=== PATIENT | female | born 1995 | race Caucasian/White ===

== ENCOUNTER 2017-06-13 08:00 | Emergency (ER) | payer BC ==
[2017-06-13 08:38] VITALS: BP 106/62
--- NOTE | 2017-06-13 08:45 | UC ---
Eye Complaint HPI - HPI Summary HPI Summary: Nadia Merritt eye red with discharge yesterday. She has had a cold since tuesday which is sinus congestion/pressure. Stase sinus pressure is 5/10. Denies contact use or injury. no vision loss or photophobia. no fever or sore throat - History of Current Complaint Stated Complaint: EYE COMPLAINT Time Seen by Provider: 06/13/17 08:29 Hx Obtained From: Patient Hx Last Menstrual Period: 05/20/17 ?: No Onset/Duration: Gradual Onset Timing: Constant Pain Intensity: 5 Aggravating Factor(s): Nothing Alleviating Factor(s): Nothing Associated Signs And Symptoms: Negative: Photophobia, Vision Impairment Bilateral, Vision Impairment Right, Vision Impairment Left, Fever, Swelling - Risk Factors Penetrating Injury Risk Factor: Negative Globe Rupture Risk Factors: Negative Acute Glaucoma Risk Factors: Negative Optic Artery Occlusion Risk Factors: Negative - Allergies/Home Medications Allergies/Adverse Reactions: Allergies Allergy/AdvReac Type Severity Reaction Status Date / Time apple Allergy Hives Verified 06/13/17 08:29 gluten Allergy Diarrhea Verified 06/13/17 08:29 PMH/Surg Hx/FS Hx/Imm Hx Previously Healthy: Yes - Surgical History Surgical History: None - Family History Known Family History: Positive: None - Social History Occupation: Student Lives: Alone Alcohol Use: None Substance Use Type: None Smoking Status (MU): Never Smoked Tobacco - Immunization History Vaccination Up to Date: Yes Review of Systems Constitutional: Negative Skin: Negative Eyes: Drainage, Eye Redness ENT: Sinus Congestion Respiratory: Negative Cardiovascular: Negative Gastrointestinal: Negative Genitourinary: Negative Motor: Negative Neurovascular: Negative Musculoskeletal: Negative Neurological: Negative Psychological: Negative Is Patient Immunocompromised?: No All Other Systems Reviewed And Are Negative: Yes Physical Exam Triage Information Reviewed: Yes Appearance: Well-Appearing Vital Signs: Initial Vital Signs Temp 98.9 F 06/13/17 08:30 Pulse 88 06/13/17 08:30 Resp 16 06/13/17 08:30 BP 106/62 06/13/17 08:30 Pulse Ox 99 06/13/17 08:30 Vital Signs Reviewed: Yes Eyes: Positive: Conjunctiva Inflamed - L, R clear, Discharge - L, R is clear ENT: Positive: Pharynx normal, Nasal congestion, TMs normal. Negative: Nasal drainage, Sinus tenderness Neck: Positive: Supple, Nontender, No Lymphadenopathy Respiratory: Positive: Chest non-tender, Lungs clear, Normal breath sounds Cardiovascular: Positive: RRR, No Murmur, Pulses Normal Abdomen Description: Positive: Nontender, No Organomegaly, Soft Bowel Sounds: Positive: Present Neurological: Positive: Alert Psychological: Positive: Age Appropriate Behavior Skin Exam: Normal Skin: Positive: Other - No pre or postauricular adenopathy. Eye Complaint Course/Dx - Course Course Of Treatment: hx/exam c/w uri and conjunctivitis L eye with d/c thus will cover with antibiotic. no concern for glaucoma or corneal ulcer. - Differential Dx/Diagnosis Provider Diagnoses: URI, Conjunctivitis OS Discharge - Discharge Plan Condition: Stable Disposition: HOME Prescriptions: Erythromycin OPTH OINT* [Erythromycin 0.5% OPTH OINT*] 1 applic LEFT EYE TID 7 Days #1 ophth.oint Patient Education Materials: Upper Respiratory Infection (ED), Conjunctivitis ( ED) Referrals: Emperatriz Clemente MD [Medical Doctor] - 5 Days
== END 2017-06-13 09:06 | disposition home or self-care (01) ==
LOC: UCCORT 08:00
DX: J06.9 Acute upper respiratory infection, unspecified (principal); H10.9 Unspecified conjunctivitis
CPT/HCPCS: 99202; G0463